=== PATIENT | male | born 1970 | race Caucasian/White ===

== ENCOUNTER → 2017-04-02 | Outpatient (CLI) | payer BC ==
[~2017-04-02] MED LIST: ALPR0.5T7 PO; ATEN50TA PO; LISI-552 PO
--- NOTE | 2017-04-02 19:25 | Diagnostic Imaging Report ---
Supine view of the abdomen. INDICATION: Left ureteric stone. FINDINGS: Pelvic calcifications on the right side are likely related to phleboliths. There is no definitive left kidney or ureteric stone identified. Bowel gas pattern is unremarkable. IMPRESSION: No definitive urinary tract stone is identified. Dictated by: Dictated on workstation # [id number]
== END ==
LOC: RAD 08:36
PROVIDERS: ATTEND Urology
DX: N20.1 Calculus of ureter (principal)
CPT/HCPCS: 74000

== ENCOUNTER 2017-04-05 05:36 | Outpatient (CLI) | payer BC ==
[~2017-04-05] VITALS: Ht 182.9 cm; Wt 124.7 kg
[2017-04-05] MEDS ORDERED: ATEN50TA PO (11:42)
[2017-04-05] MEDS ORDERED: LISI-552 PO (11:42)
[2017-04-05] MEDS ORDERED: ALPR0.5T7 PO (11:42)
== END 2017-04-05 12:25 ==
LOC: PREOP 05:36
PROVIDERS: ATTEND Urology
DX: Z01.818 Encounter for other preprocedural examination (principal); N20.1 Calculus of ureter

== ENCOUNTER 2017-04-07 07:08 | Day surgery (SDC) | payer BC ==
[~2017-04-07] VITALS: Ht 182.9 cm; Wt 124.7 kg
--- OUTSIDE RECORDS SUMMARY | 2017-04-07 07:11 | XMS REPORT | Clinical Summary ---
Author Author Admin, SEAN Organization [facility] Address Unknown Phone Unavailable Allergies, Adverse Reactions, Alerts Allergy Name Reaction Description Start Date Severity Status Provider MORPHINE SULFATE (PF) Critical Active Pino Hopkins MD CLARITIN Critical Active Emelia BALLARDA Conditions or Problems Problem Name Problem Code Onset Date Status Entry Date Provider Comment Standard Description Annotate HEALTH SCREENING V70.0 Active Mann MILLER Routine general medical examination at a health care facility WEIGHT GAIN 783.1 Active Pino Hopkins MD Abnormal weight gain ERECTILE DYSFUNCTION 302.72 Active Pino Hopkins MD Psychosexual dysfunction with inhibited sexual excitement ALLERGIC RHINITIS 477.9 Active Pino Hopkins MD Allergic rhinitis, cause unspecified GYNECOMASTIA 611.1 Active Pino Hopkins MD Hypertrophy of breast HEALTH EXAMINATION OF DEFINED SUBPOPULATION8 V70.5 Active 08/11 Pino Hopkins MD Health examination of defined subpopulations Flank pain, left 789.09 Active Fermin Pickett MD Abdominal pain, other specified site; multiple sites Hypertension 401.9 Active Fermin Pickett MD Unspecified essential hypertension Stress 308.9 Active Pino Hopkins MD Unspecified acute reaction to stress Medication List Medication Instructions Start Date Stop Date Generic Name NDC Status Provider Patient Instruction ATENOLOL 50 MG TAB 1 daily for high blood pressure ATENOLOL 96250765496 Active Shanti Yuen APRN Active LISINOPRIL 20 MG TABS 1 tablet by mouth daily LISINOPRIL 19377087184 Active Pino Hopkins MD Active FLUTICASONE PROPIONATE 50 MCG/ACT SUSP 2 sprays each nostril daily FLUTICASONE PROPIONATE 97022372645 Active Pino Hopkins MD Active FEXOFENADINE HCL 180 MG TABS 1 PO Q AM FEXOFENADINE HCL 91451714108 Active Pino Hopkins MD Active HYDROCODONE-ACETAMINOPHEN 5-500 MG TABS 1-2 tablets by mouth qid as needed HYDROCODONE-ACETAMINOPHEN 76511200745 No Longer Active Mann MILLER Active HYDROCODONE-ACETAMINOPHEN 5-500 MG TABS 1-2 tablets by mouth qid as needed HYDROCODONE-ACETAMINOPHEN 5-500 MG TABS HYDROCODONE- ACETAMINOPHEN Inactive Vital Signs Date Name Value Unit Range Description blood pressure, diastolic - 8462-4 88 mm[Hg] BP bautista blood pressure, systolic - 8480-6 122 mm[Hg] BP sys pulse rate E&M - 8867-4 60 /min Heart rate temperature E&M 98.5 [degF] Body temperature weight E&M - 3141-9 269.8 [lb_av] Weight Measured blood pressure, diastolic - 8462-4 91 mm[Hg] BP bautista blood pressure, systolic - 8480-6 126 mm[Hg] BP sys pulse rate E&M - 8867-4 87 /min Heart rate temperature E&M 99.3 [degF] Body temperature weight E&M - 3141-9 269 [lb_av] Weight Measured Diagnostic Results Date Name Value Unit Range Description Lab Report: CBC, Comp. Metabolic Panel, UADIP W/MICRO, AUTO - Chemistry sodium, serum 141 mmol/L 328-601 7870/08/25 potassium, serum 4.5 mmol/L 3.5-5.2 chloride, serum 101 mmol/L 98-107 carbon dioxide, venous blood 31.4 mmol/L 21.0-32.0 blood glucose 85 mg/dL 65-110 urea nitrogen, blood 14 mg/dL 7-18 creatinine, serum 1.10 mg/dL 0.60-1.30 alanine aminotransferase (SGPT), serum 48 U/L 12-78 aspartate aminotransferase (SGOT), serum 26 U/L 15-37 alkaline phosphatase, serum 95 U/L 50-136 calcium, serum 9.5 mg/dL 8.5-10.1 bilirubin, serum, total 0.40 mg/dL 0.00-1.00 protein, total urine random Negative mg/dL Negative RBC, urine, dipstick Negative Negative Lab Report: CBC, Comp. Metabolic Panel, UADIP W/MICRO, AUTO - Hematology mean corpuscular volume, RBC 91 fL 80-97 hematocrit, blood 49.7 % 41.0-53.0 hemoglobin, blood 16.9 g/dL 13.5-17.5 erythrocyte (RBC) count 5.48 10^6/MM^3 10*6/mm3 4.69-6.13 leukocyte count, blood 7.2 10^3/MM^3 10*3/mm3 4.6-10.2 mean corpuscular hemoglobin, RBC 30.8 pg 27.0-31.2 mean corpuscular hemoglobin concentration, RBC 34.0 G/DL % 31.8- 35.4 red blood cell distribution width 13.1 % 11.6-14.8 platelet count 238 10^3/MM^3 10*3/mm3 142-424 Lab Report: CBC, Comp. Metabolic Panel, UADIP W/MICRO, AUTO - Urinalysis glucose, urine, semiquantitative Negative Negative ketones, urine, by test strip Negative Negative bilirubin, urine Negative Negative urobilinogen, urine, semiquantitative (dipstick) 0.2 Normal leukocyte esterase, urine, by dipstick Negative Negative nitrite, urine, semiquantitative Negative Negative urine color Yellow Colorless;Lightyellow;Straw;Yellow appearance, urine Clear Clear specific gravity, urine 1.025 1.000-1.030 pH, urine, semiquantitative 5.5 5.0-8.5 Encounters Code Encounter Date Provider Facility CPT-62791 Level 3 Est. Patient 16:10:12 CDT Pino Hopkins MD [facility] CPT-83453 Level 4 Est. 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
--- OUTSIDE RECORDS SUMMARY | 2017-04-07 07:12 | XMS REPORT | Clinical Summary ---
Author Author Admin, SEAN Organization [facility] Address Unknown Phone Unavailable Allergies, Adverse Reactions, [...] 1 daily for high blood pressure ATENOLOL 15891350914 Active Pino Hopkins MD Active LISINOPRIL 20 MG TABS 1 tablet by mouth daily LISINOPRIL 65221672758 Active Pino Hopkins MD Active FLUTICASONE PROPIONATE 50 MCG/ACT SUSP 2 sprays each nostril daily FLUTICASONE PROPIONATE 67973387069 Active Pino Hopkins MD Active FEXOFENADINE HCL 180 MG TABS 1 PO Q AM FEXOFENADINE HCL 68158517735 Active Pino Hopkins MD Active HYDROCODONE-ACETAMINOPHEN 5-500 MG TABS 1-2 tablets by mouth qid as needed HYDROCODONE-ACETAMINOPHEN 58042669226 No Longer Active Mann MILLER Active HYDROCODONE-ACETAMINOPHEN [...] AUTO - Chemistry sodium, serum 141 mmol/L 413-922 5963/08/25 potassium, serum 4.5 mmol/L 3.5-5.2 chloride, serum [...] 5.0-8.5 Encounters Code Encounter Date Provider Facility CPT-48734 Level 3 Est. Patient 16:10:12 CDT Pino Hopkins MD [facility] CPT-05332 Level 4 Est. 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 Patient 12:22:27 CDT Pino Hopkins MD [facility] CPT-91574 Employment/ICC Exam 17:23:30 JEWELRY MOLD MAKER Mann MILLER [facility] Procedures Code Procedure Name Date Entry Date Standard Description CPT-31918 Spec Collection and Handling Fee 11:59:36 CDT CPT-18811 Spec Collection and Handling Fee 08:23:43 JEWELRY MOLD MAKER CPT-36756 Abd compl w upright 16:11:36 CDT
--- OUTSIDE RECORDS SUMMARY | 2017-04-07 07:12 | XMS REPORT | Continuity of Care Document ---
Demographics Preferred Language Unknown Marital Status Unknown Episcopal Affiliation Unknown Race Unknown Ethnic Group Unknown Author Author [facility] Organization [facility] Address Unknown Phone Unavailable Allergies Active Description Code Type Severity Reaction Onset Reported/Identified Relationship to Patient Clinical Status Yes Claritin Drug N/A N/A Yes morphine Drug N/A N/A Medications Problems Procedures Results Encounters ACCT No. Visit Date/Time Discharge Status Pt. Type Provider Facility Loc./Unit Complaint [id number] 03/31/2017 01:59:32 Document Registration
--- OUTSIDE RECORDS SUMMARY | 2017-04-07 07:12 | XMS REPORT | Clinical Summary ---
Author Author Admin, SEAN Organization [facility] Address Unknown Phone Unavailable Allergies, [...] 1 daily for high blood pressure ATENOLOL 48944601041 Active Shanti Yuen APRN Active LISINOPRIL 20 MG TABS 1 tablet by mouth daily LISINOPRIL 77320743980 Active Pino Hopkins MD Active FLUTICASONE PROPIONATE 50 MCG/ACT SUSP 2 sprays each nostril daily FLUTICASONE PROPIONATE 24170912720 Active Pino Hopkins MD Active FEXOFENADINE HCL 180 MG TABS 1 PO Q AM FEXOFENADINE HCL 78406870199 Active Pino Hopkins MD Active HYDROCODONE-ACETAMINOPHEN 5-500 MG TABS 1-2 tablets by mouth qid as needed HYDROCODONE-ACETAMINOPHEN 88085421673 No Longer Active Mann MILLER Active HYDROCODONE-ACETAMINOPHEN [...] AUTO - Chemistry sodium, serum 141 mmol/L 232-003 8255/08/25 potassium, serum 4.5 mmol/L 3.5-5.2 chloride, serum [...] Metabolic Panel, UADIP W/MICRO, AUTO - Hematology leukocyte count, blood 7.2 10^3/MM^3 10*3/mm3 4.6-10.2 erythrocyte (RBC) count 5.48 10^6/MM^3 10*6/mm3 4.69-6.13 hemoglobin, blood 16.9 g/dL 13.5-17.5 hematocrit, blood 49.7 % 41.0-53.0 mean corpuscular volume, RBC 91 fL 80-97 mean corpuscular hemoglobin, RBC 30.8 pg 27.0-31.2 mean corpuscular hemoglobin concentration, RBC 34.0 G/DL % 31.8- 35.4 red blood cell distribution width 13.1 % 11.6-14.8 platelet count 238 10^3/MM^3 10*3/mm3 142-424 Lab Report: CBC, Comp. Metabolic Panel, UADIP W/MICRO, AUTO - Urinalysis urobilinogen, urine, semiquantitative (dipstick) 0.2 Normal leukocyte esterase, urine, by dipstick Negative Negative nitrite, urine, semiquantitative Negative Negative glucose, urine, semiquantitative Negative Negative ketones, urine, by test strip Negative Negative bilirubin, urine Negative Negative urine color Yellow Colorless;Lightyellow;Straw;Yellow appearance, urine Clear Clear specific gravity, urine 1.025 1.000-1.030 pH, urine, semiquantitative 5.5 5.0-8.5 Encounters Code Encounter Date Provider Facility CPT-83583 Level 3 Est. Patient 16:10:12 CDT Pino Hopkins MD [facility] CPT-34611 Level 4 Est. 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 Patient 12:22:27 CDT Pino Hopkins MD [facility] CPT-55247 Employment/ICC Exam 17:23:30 RETAIL ANALYST Mann MILLER [facility] Procedures Code Procedure Name Date Entry Date Standard Description CPT-51588 Spec Collection and Handling Fee 11:59:36 CDT CPT-05904 Spec Collection and Handling Fee 08:23:43 RETAIL ANALYST CPT-18310 Abd compl w upright 16:11:36 CDT
--- OUTSIDE RECORDS SUMMARY | 2017-04-07 07:12 | XMS REPORT | Clinical Summary ---
Author Author Admin, SEAN Organization [facility] Address Unknown Phone Unavailable Allergies, Adverse Reactions, [...] 1 daily for high blood pressure ATENOLOL 15971083676 Active Pino Hopkins MD Active LISINOPRIL 20 MG TABS 1 tablet by mouth daily LISINOPRIL 38495327863 Active Pino Hopkins MD Active FLUTICASONE PROPIONATE 50 MCG/ACT SUSP 2 sprays each nostril daily FLUTICASONE PROPIONATE 93422814213 Active Pino Hopkins MD Active FEXOFENADINE HCL 180 MG TABS 1 PO Q AM FEXOFENADINE HCL 59225053468 Active Pino Hopkins MD Active HYDROCODONE-ACETAMINOPHEN 5-500 MG TABS 1-2 tablets by mouth qid as needed HYDROCODONE-ACETAMINOPHEN 78481220551 No Longer Active Mann MILLER Active HYDROCODONE-ACETAMINOPHEN [...] AUTO - Chemistry sodium, serum 141 mmol/L 084-057 0779/08/25 potassium, serum 4.5 mmol/L 3.5-5.2 chloride, serum [...] 5.0-8.5 Encounters Code Encounter Date Provider Facility CPT-22929 Level 3 Est. Patient 16:10:12 CDT Pino Hopkins MD [facility] CPT-39930 Level 4 Est. 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 Patient 12:22:27 CDT Pino Hopkins MD [facility] CPT-30863 Employment/ICC Exam 17:23:30 CYANIDE CASE HARDENER Mann MILLER [facility] Procedures Code Procedure Name Date Entry Date Standard Description CPT-27542 Spec Collection and Handling Fee 11:59:36 CDT CPT-50069 Spec Collection and Handling Fee 08:23:43 CYANIDE CASE HARDENER CPT-06245 Abd compl w upright 16:11:36 CDT
[2017-04-07 07:15] VITALS: BP 142/97
[2017-04-07] MEDS ORDERED: CATHETER FLUSH 10 ML SYR IV PRN (07:45)
[2017-04-07] MEDS ORDERED: LEVOFLOXACIN 250 MG/D5W 50 ML (PRE-MIX) IV ONE (07:45)
--- NOTE | 2017-04-07 07:54 | Diagnostic Imaging Report ---
INDICATION: Urinary tract calculi. Comparison is made study of 04/02/2017. FINDINGS: There is a questionable 0.3 cm calcification projected to the left of the L3-L4 disc which could represent ureteric stone. Calcifications in the right hemipelvis have the appearance suggestive of phleboliths. Note is made of widening of pubic symphysis similar to previous study. IMPRESSION: Questionable 0.3 cm stone in the region of the left mid ureter and clinical correlation is recommended. Dictated by: Dictated on workstation # [id number]
[2017-04-07] MEDS ORDERED: FLUT9.9S NSEACH (08:19)
--- NOTE | 2017-04-07 08:51 | Progress Note-Pre Operative ---
Pre-Operative Progress Note H&P Reviewed The H&P was reviewed, patient examined and no changes noted. Date Seen by Provider: Apr 07, 2017 Time Seen by Provider: 08:51 Date H&P Reviewed: Apr 07, 2017 Time H&P Reviewed: 08:51 Pre-Operative Diagnosis: LT PROXIMAL URETERAL STONE BIJAL EVANS MD Apr 07, 2017 8:51 am
[2017-04-07] MEDS ORDERED: LACTATED RINGERS 1,000 ML IV PRN (08:58)
[2017-04-07] MEDS ORDERED: DEXAMETHASONE 10 MG/ML (DECADRON) 1 ML VIAL ONE (09:39)
[2017-04-07] MEDS ORDERED: LIDOCAINE PF 2% 5 ML (XYLOCAINE) VIAL ONE (09:39)
[2017-04-07] MEDS ORDERED: SEVOFLURANE (ULTANE) 15 ML INHAL SOLN ONE ×2 (09:39→10:09)
[2017-04-07] MEDS ORDERED: proPOfol 200 MG/20 ML (DIPRIVAN) VIAL IV ONE (09:39)
[2017-04-07] MEDS ORDERED: ONDANSETRON 4 MG/2 ML (SDV) Z0FRAN ONE (09:39)
[2017-04-07] MEDS ORDERED: MIDAZOLAM 2 MG/2 ML (VERSED) VIAL ONE (09:40)
[2017-04-07] MEDS ORDERED: fentaNYL INJECTION 100 MCG/2 ML AMP ONE (09:40)
[2017-04-07] MEDS ORDERED: FAMOTIDINE 20MG/2ML IV (PEPCID) ONE (09:51)
[2017-04-07] MEDS ORDERED: SCOPOLAMINE 1.5 MG (TRANSDERM-SCOP) PATCH ONE (09:51)
--- NOTE | 2017-04-07 10:22 | Discharge Inst-Urology ---
Discharge Inst-Urology Discharge Medications New, Converted, or Re-newed RX: RX on Chart Patient Instructions/Follow Up Plan Please make appointment to been seen in office in 4 weeks. KUB prior to office KUB on way home Post ESWL instructions Increase oral fluids for 48 hours and then as needed. Diet and Activity as tolerated. If questions or concerns contact your physician Or seek help at emergency department. BIJAL EVANS MD Apr 07, 2017 10:22 am
--- NOTE | 2017-04-07 10:23 | Progress Note-Post Operative ---
Post-Operative Progess Note Surgeon (s)/Industrial Conveyor Belt Repairer (s) Surgeon BIJAL EVANS MD Industrial Conveyor Belt Repairer: N/A Pre-Operative Diagnosis LT PROXIMAL URETERAL STONE Post-Operative Diagnosis SAME Procedure & Operative Findings Date of Procedure 04/07/17 Procedure Performed/Findings LT ESWL Anesthesia Type GENERAL Estimated Blood Loss Estimated blood loss (mL): N/A Specimens/Packing Specimens Removed N/A Packing: N/A BIJAL EVANS MD Apr 07, 2017 10:23 am
[2017-04-07] MEDS ORDERED: PROPOFOL INJECTION 100 ML IV ONE (10:31)
[2017-04-07] MEDS ORDERED: fentaNYL INJECTION 100 MCG/2 ML AMP IVP PRN (11:00)
[2017-04-07] MEDS ORDERED: PROMETHAZINE INJ 25 MG/ML (PHENERGAN) AMP IVP PRN (11:00)
[2017-04-07] MEDS ORDERED: KETOROLAC 30 MG/ML VIAL IVP ONE (11:00)
[2017-04-07] MEDS ORDERED: ONDANSETRON 4 MG/2 ML (SDV) Z0FRAN IVP PRN (11:00)
[2017-04-07 11:30] VITALS: BP 124/90
[2017-04-07] MEDS ORDERED: HYDR-3874 PO (11:44)
[2017-04-07] MEDS ORDERED: TAMS0.4C98 PO (11:44)
[2017-04-07] MEDS ORDERED: NITR-68 PO (11:44)
[2017-04-07 12:00] VITALS: BP 133/87
[2017-04-07 12:25] VITALS: BP 133/87
[2017-04-07 12:30] VITALS: BP 136/85
--- NOTE | 2017-04-07 13:24 | Diagnostic Imaging Report ---
EXAMINATION: Supine view of the abdomen. INDICATION: Post lithotripsy. FINDINGS: There is a 6 mm calcification between the left transverse processes of L3 and L4, which could represent a proximal left ureteric stone. Right-sided pelvic calcifications are likely phleboliths. Moderate amounts of fecal material seen in the colon. IMPRESSION: 6 mm left flank calcification between the transverse processes of L3 and L4, may relate to a proximal left ureteric stone. Dictated by: Dictated on workstation # [id number]
--- NOTE | 2017-04-08 11:48 | OPERATIVE REPORT ---
DATE OF SERVICE: 04/07/2017 PREOPERATIVE DIAGNOSIS: Left proximal ureteral stone. POSTOPERATIVE DIAGNOSIS: Left proximal ureteral stone. OPERATION PERFORMED: Left ESWL. SURGEON: Jose Evans MD. ANESTHESIA: General. COMPLICATIONS: None. PROCEDURE: Under satisfactory general anesthesia, the patient in supine position on ESWL table, the left proximal ureteral stone was localized. Shocks were delivered at kV of 5 and then 6. A total of 2500 shocks completely fragmented the stone. The patient received 40 mg of Lasix and 30 mg of Toradol IV at the end of the procedure. He tolerated the procedure and anesthesia well and was sent to the recovery room in stable condition. Job ID: [id number] DocumentID: [id number] Dictated Date: 04/07/2017 10:38:28 [employer] Date: 04/07/2017 23:15:08 Dictated By: JOSE EVANS MD
== END 2017-04-07 12:25 | disposition home or self-care (01) ==
LOC: SDC 07:08
PROVIDERS: ATTEND Urology
DX: N20.1 Calculus of ureter (principal); I10 Essential (primary) hypertension; J30.2 Other seasonal allergic rhinitis; F41.9 Anxiety disorder, unspecified; E66.9 Obesity, unspecified; Z68.37 Body mass index [BMI] 37.0-37.9, adult; Z79.899 Other long term (current) drug therapy
CPT/HCPCS: 74000; 87081